=== PATIENT | female | born 1995 | race Caucasian/White ===

== ENCOUNTER 2016-10-13 23:50 | Emergency (ER) | payer OTHER | END 2016-10-14 00:40 | disposition home or self-care (01) | LOC: CFTX 23:50 | DX: L23.9 Allergic contact dermatitis, unspecified cause (principal) | CPT/HCPCS: 99282 ==

== ENCOUNTER 2016-10-15 12:41 | Emergency (ER) | payer OTHER ==
[2016-10-15 12:52] LABS: INFLUENZA A NEG (NEG); INFLUENZA B NEG (NEG)
[2016-10-15 13:06] LABS: URINE SOURCE CLEAN CATCH
[2016-10-15 13:13] LABS: BASOPHIL% 0.3 % (0-2.5); EOSINOPHIL% 0.2 % (0.0-7.0); HEMOGLOBIN 13.8 gm/dL (12.0-16.0); LYMPHOCYTE# 3.3 X10e3 (1.0-3.5); LYMPHOCYTE% 29.4 % (17.0-45.0); MEAN CORPUSCULAR HEMOGLOBIN 26.7 PG (28-34); MEAN CORPUSCULAR HGB CONC 32.1 g/dL (30-36); MEAN PLATELET VOLUME 8.8 FL (6.5-11.5); MONOCYTE% 9.3 % (3.0-12.0); NEUTROPHIL# 6.7 X10e3 (1.5-7.1); NEUTROPHIL% 60.8 % (40-75); PLATELET COUNT 238 X10e3 (140-420); RED BLOOD COUNT 5.18 X10e (3.90-5.30); RED CELL DISTRIBUTION WIDTH 12.8 % (11.0-15.5); WHITE BLOOD COUNT 11.1 X10e3 (4.0-10.5)
[2016-10-15 13:17] LABS: URINE APPEARANCE SL HAZY; URINE COLOR YELLOW; URINE GLUCOSE NORM (NORM); URINE KETONE NEG (NEG); URINE LEUKOCYTE ESTERASE NEG (NEG); URINE NITRATE POS (NEG); URINE PROTEIN 1+ (NEG); URINE SPECIFIC GRAVITY 1.025 (1.003-1.035); URINE UROBILINOGEN NORM (NORM)
[2016-10-15 13:19] LABS: URINE BILIRUBIN NEG (NEG); URINE BLOOD NEG (NEG)
[2016-10-15 13:21] LABS: CULTURE INDICATED? YES; URINE BACTERIA AUWI 1+ (NEGATIVE); URINE YEAST PRESENT
[2016-10-15 13:27] LABS: DIFF IND NO
[2016-10-15 13:41] LABS: BILIRUBIN,TOTAL 0.4 mg/dL (0.2-2.0); BUN/CREATININE RATIO 27.14; CALCIUM SERUM 9.5 mg/dL (8.4-10.2); CREATININE SERUM 0.7 mg/dL (0.6-1.4); GLOM FILT RATE Estimated 123.9 mL/min (>60); POTASSIUM 3.6 mmol/L (3.5-5.1); PROTEIN TOTAL SERUM 7.2 g/dL (6.0-8.3)
== END 2016-10-15 14:18 | disposition home or self-care (01) ==
LOC: CFTX 12:41
PROVIDERS: Nurse Practitioner
DX: N30.00 Acute cystitis without hematuria (principal); F41.9 Anxiety disorder, unspecified; F17.210 Nicotine dependence, cigarettes, uncomplicated; Z88.0 Allergy status to penicillin; Z88.5 Allergy status to narcotic agent; Z88.8 Allergy status to other drugs, medicaments and biological substances
CPT/HCPCS: 80053; 81003; 83690; 84703; 85025; 87086; 87804; 99283

== ENCOUNTER 2016-12-11 12:55 | Emergency (ER) | payer OTHER ==
--- NOTE | ~2016-12-11 | CT2 ---
[facility] A Service of [facility] RADIOLOGY TEXT RESULTS PATIENT: CHRISTIE BORDEN LOCATION: [facility] : 95 UNIT #: [id number] AGE: [address]: Janak Kim MD SEX: F ORDER DR: [id number] [facility] [address] [place], [place] [address] [id number] MR#: [id number] Acc #: [id number] NAME: CHRISTIE BORDEN : 1995 SEX: F STUDY DATE/TIME: 12/11/2016 16:21 UNIT: [facility] ROOM: STUDY DESCRIPTION: CT Abd and Pelv W Cont Attending Physician: Janak Kim M.D. Ordering Physician: Janak Kim M.D. Primary Care Physician: Jeanette Campos A.P.R.N. MEDICAL IMAGING REPORT This report is preliminary unless electronic signature is present EXAM CT of the abdomen and pelvis with contrast INDICATIONS Nausea, vomiting and diarrhea for 3 days. Patient has a history of ventriculoperitoneal shunt. TECHNIQUE Axial CT images were obtained from the dome of the diaphragm through the symphysis pubis following the administration of intravenous contrast material. This CT exam was performed with one or more of the following radiation dose reduction techniques: Automatic exposure control, adjustment of mA and/or kV according to patient size, and iterative reconstruction. FINDINGS Images through the lung bases are clear. Liver appears unremarkable. Stomach and proximal small bowel are within normal limits, as is the spleen. Adrenal glands appear normal, as are the gallbladder and kidneys. Patient does have some mild pancreatic head atrophy, which was also present on a March 2016 examination. No free fluid or adenopathy is seen within the abdomen. Patient's appendix is visualized and is within normal limits. There is no convincing evidence of mechanical bowel obstruction. This patient does have a ventriculoperitoneal shunt. Review of bony windows does not demonstrate any aggressive osseous abnormality. IMPRESSION No definite acute intraabdominal or intrapelvic process is seen to account for the patient's symptomatology. Solid organs are essentially [facility] A Service of [facility] RADIOLOGY TEXT RESULTS PATIENT: CHRISTIE BORDEN LOCATION: [facility] : 95 UNIT #: [id number] AGE: [address]: Janak Kim MD SEX: F ORDER DR: unremarkable and there is no evidence of mechanical bowel obstruction. Patient's appendix is visualized and is within normal limits. Dictated by... Delphine Saucedo M.D. THIS IS AN ELECTRONICALLY VERIFIED REPORT Delphine Saucedo M.D. at 12/13/2016 12:42 PM AFF/psc TD: 12/11/2016 21:53 JOB #: [id number] MEDICAL IMAGING REPORT Page 1 of 1 COPY
[2016-12-11 14:13] LABS: BASOPHIL% 0.5 % (0-2.5); EOSINOPHIL# 0.1 X10e3 (0-0.7); EOSINOPHIL% 1.7 % (0.0-7.0); HEMATOCRIT 45.8 % (35.0-45.0); LYMPHOCYTE# 0.8 X10e3 (1.0-3.5); LYMPHOCYTE% 11.4 % (17.0-45.0); MEAN CELL VOLUME 82.3 FL (83-96); MEAN CORPUSCULAR HEMOGLOBIN 26.9 PG (28-34); MEAN CORPUSCULAR HGB CONC 32.6 g/dL (30-36); MONOCYTE# 0.6 X10e3 (0-1.0); MONOCYTE% 8.3 % (3.0-12.0); NEUTROPHIL# 5.6 X10e3 (1.5-7.1); NEUTROPHIL% 78.1 % (40-75); PLATELET COUNT 243 X10e3 (140-420); RED BLOOD COUNT 5.57 X10e (3.90-5.30); RED CELL DISTRIBUTION WIDTH 12.6 % (11.0-15.5); WHITE BLOOD COUNT 7.2 X10e3 (4.0-10.5)
[2016-12-11 14:18] LABS: DIFF IND NO
[2016-12-11 14:57] LABS: ALBUMIN SERUM 4.2 g/dL (3.5-5.0); BILIRUBIN, DIRECT 0.1 mg/dL (0.0-0.2); BILIRUBIN,TOTAL 1.1 mg/dL (0.2-2.0); BUN/CREATININE RATIO 18.75; CALCIUM SERUM 9.1 mg/dL (8.4-10.2); CREATININE SERUM 0.8 mg/dL (0.6-1.4); GLOM FILT RATE Estimated 105.5 mL/min (>60); POTASSIUM 4.4 mmol/L (3.5-5.1); PROTEIN TOTAL SERUM 7.7 g/dL (6.0-8.3)
[2016-12-11 15:02] LABS: URINE SOURCE CLEAN CATCH
[2016-12-11 15:42] LABS: URINE APPEARANCE CLOUDY; URINE COLOR YELLOW; URINE GLUCOSE 300 MG/DL (NEG); URINE KETONE NEG (NEG); URINE LEUKOCYTE ESTERASE NEG (NEG); URINE NITRATE NEG (NEG); URINE PROTEIN 1+ (NEG); URINE UROBILINOGEN NORM (NEG)
[2016-12-11 15:43] LABS: URINE BILIRUBIN NEG (NEG); URINE BLOOD NEG (NEG)
[2016-12-11 15:45] LABS: CULTURE INDICATED? YES; URBCS1 AUWI 0-2 /[HPF] (0-2); URINE BACTERIA AUWI 4+ (NEGATIVE); URINE SQUAMOUS EPITHELIAL CELL FEW /[HPF]
[2016-12-12] MEDS ORDERED: SERTRALINE HCL100 M1 PO (02:30)
[2016-12-12] MEDS ORDERED: HYDROXYZINE HCL25 M1 PO (02:31)
== END 2016-12-11 17:48 | disposition home or self-care (01) ==
LOC: CED 12:55
PROVIDERS: Emergency Medicine
DX: R10.9 Unspecified abdominal pain (principal); R11.2 Nausea with vomiting, unspecified; F41.9 Anxiety disorder, unspecified; Z88.0 Allergy status to penicillin; Z88.5 Allergy status to narcotic agent; Z88.8 Allergy status to other drugs, medicaments and biological substances
CPT/HCPCS: 36415; 74177; 80048; 80076; 81003; 83690; 84703; 85025; 87086; 96361; 96372; 96374; 99284; J0500; J2405; Q9967

== ENCOUNTER 2016-12-11 22:39 | Observation (INO) | payer OTHER ==
--- NOTE | ~2016-12-11 | DS ---
Unit #: [id number] #: [id number] Patient: CHRISTIE BORDEN [id number] [address] [place], [place] [address] [id number] I MR#: [id number] NAME: CHRISTIE BORDEN ROOM: 459 Age: 21 Sex: F Admission Date: 12/12/2016 : 1995 Discharge Date: 12/13/2016 Attending Physician: Rosario Espinoza M.D. Primary Care Physician: Jeanette Campos A.P.R.N. DISCHARGE SUMMARY REASON FOR ADMISSION Nausea/abdominal pain. HISTORY OF PRESENT ILLNESS/HOSPITAL COURSE The patient is a 21-year-old female with a prior history of hydrocephalus with shunt with numerous prior surgeries who was admitted secondary to generalized abdominal pain. She stated that she had taken some home pain medications including Tylenol and/or Motrin with some relief. Thus, she was admitted for possible underlying colitis and/or gallbladder issues. While she was evaluated in the emergency room, she underwent a CT abdomen and pelvis with contrast which did not show any acute process. Consultation was subsequently placed to Dr. Mcguire of gastroenterology services. The patient underwent upper GI endoscopy as well as sigmoidoscopy with biopsies. Upper GI endoscopy was completely normal up to the third part of the duodenum. For sigmoidoscopy, completely normal examination up to the distal transverse colon. Multiple random biopsies were ascertained. Routine stool studies were ascertained as well including C. diff which was negative. Initial laboratory studies showed a mildly positive urinalysis; however, urine culture was negative. Ultrasound of gallbladder was performed in consideration of possible underlying gallbladder issues. That, too, was negative. Subsequently, a HIDA scan was also ordered which was normal. Ejection fraction was noted to be 41%. At this point in time, extensive workup has been performed and no acute etiology has been found. Therefore, the patient appears clinically stable for discharge from the hospital standpoint. She states she has difficulty following up with a primary care physician secondary to logistical and/or schedule issues. I have asked her to follow up with Dr. Mcguire in approximately two to three weeks post discharge. She will be maintained on her routine home medications including Zoloft as well as Atarax and will add Protonix 40 mg on a daily basis to her regimen. FINAL DISCHARGE DIAGNOSES 1. Generalized abdominal pain, etiology undetermined. 2. Prior history of hydrocephalus with shunt placement. 3. Migraine history. 4. Anxiety. 5. Depression. Unit #: [id number] #: [id number] Patient: CHRISTIE BORDEN DISCHARGE MEDICATIONS 1. Zoloft 100 mg p.o. q. h.s. 2. Atarax 25 mg p.o. q. h.s. 3. Protonix 40 mg p.o. daily. Dictated by... Anuj Lindo M.D. JENNIFER/hailee TD: 12/16/2016 08:11 JOB #: [id number] DISCHARGE SUMMARY Page 1 of 1 X Anuj Lindo MD X DISCHARGE SUMMARY
--- NOTE | ~2016-12-11 | HP ---
Unit #: [id number] #: [id number] Patient: CHRISTIE BORDEN [id number] [address] [address] [id number] MR#: [id number] NAME: CHRISTIE BORDEN ROOM: 459 Age: 21 Sex: F Admission Date: 12/12/2016 : 1995 Attending Physician: Rosario Espinoza M.D. Primary Care Physician: Jeanette Campos A.P.R.N. HISTORY AND PHYSICAL CHIEF COMPLAINT Nausea and abdominal pain. HISTORY OF PRESENT ILLNESS A 21 year old with history of hydrocephalus with shunt admitted because of abdominal pain and nausea. According to her, started 4 days prior to admission. Abdominal pain is generalized, currently 4/10. No aggravating factors. Relieved after pain medicine, associated with nausea and vomiting. Has diarrhea around 4 days, 4 times a day. No blood in stool. No vomiting blood. She felt warm but no fever. She has chills. PAST MEDICAL HISTORY 1. History of hydrocephalus with shunt. She had multiple surgeries for that. 2. History of migraine. 3. History of anxiety. 4. Depression. PAST SURGICAL HISTORY 1. Shunt placement for hydrocephalus. 2. Tonsillectomy. CURRENT HOME MEDICATIONS 1. Sertraline 100 mg at bedtime. 2. Hydroxyzine 25 at bedtime. ALLERGIES Penicillin, morphine, aspirin, fentanyl. SOCIAL HISTORY Smokes 1/4 pack per day. Occasional alcohol. No drugs. FAMILY HISTORY Positive for hypertension. REVIEW OF SYSTEMS No leg swelling. No skin rash. No weakness, numbness, tingling. Reviewed 12-point system with her, which are negative except as in the history of present illness. PHYSICAL EXAMINATION VITAL SIGNS: Temperature is 98.4, pulse 71, respirations 16, blood pressure 97/49. BMI is 48. GENERAL EXAMINATION: A 21 year old, sitting on bed, not in acute Unit #: [id number] #: [id number] Patient: CHRISTIE BORDEN distress, able to provide history, alert, oriented x3. EYES: Pupils equally reactive to light and accommodation. No pallor. No icterus. MOUTH: Dry mucosa present. NECK: Supple. HEART: S1, S2 heard. No murmurs. LUNGS: Clear to auscultation. ABDOMEN: Soft. Bowel sounds are decreased, nontender, obese. EXTREMITIES: No pedal edema. SKIN: No rash. NEUROLOGIC: Nonfocal. DIAGNOSTIC STUDIES IMAGING: CAT scan of the abdomen negative. Ultrasound shows hepatic steatosis. No gallstones. Chest x-ray negative. LAB DATA: Urinalysis shows trace protein, urobilinogen 1, bilirubin positive. Lactic acid 1.2. Sodium 137, potassium 3.4, creatinine 0.8, AST 137, ALT 180, alkaline phosphatase 89, total bilirubin 1.4, albumin 4.1. ASSESSMENT AND PLAN A 21 year old admitted because of abdominal pain, nausea. 1. Abdominal pain with nausea and diarrhea. Etiology unclear. Likely viral gastroenteritis. Admit in observation. 2. Hepatic steatosis with transaminitis with nausea and abdominal pain. I am going ask Dr. Mcguire to see. 3. History of hydrocephalus status post shunt, stable. 4. History of migraines. She did have headache yesterday. Monitor. Currently no headache. 5. Hypokalemia. Replace with potassium. 6. Morbid obesity secondary to calories. Dictated by Arianna Dwyer/shelby TD: 12/12/2016 11:20 JOB #: [id number] HISTORY AND PHYSICAL Page 1 of 1 X Rosario Espinoza MD HISTORY AND PHYSICAL
--- NOTE | ~2016-12-11 | OR ---
Unit #: [id number] #: [id number] Patient: CHRISTIE BORDEN [id number] [address] [place], [place] [address] [id number] I MR#: [id number] NAME: CHRISTIE BORDEN ROOM: 459 Date of Procedure: 12/12/2016 Admission Date: 12/12/2016 Surgeon: Philip Mcguire M.D. : 1995 Attending Physician: Rosario Espinoza M.D. Primary Care Physician: Jeanette Campos A.P.R.N. OPERATIVE REPORT PRIMARY CARE PHYSICIAN Jeanette Campos A.P.R.N. PREOPERATIVE DIAGNOSES The patient has presented with history of epigastric pain radiating to the back as well as nausea and also diarrhea for the past 5 to 7 days. PROCEDURES PERFORMED Upper gastrointestinal endoscopy as well as sigmoidoscopy and biopsies. POSTOPERATIVE DIAGNOSES For upper endoscopy: Completely normal examination up to third part of duodenum. For sigmoidoscopy: Completely normal examination up to distal transverse colon. No mucosal abnormalities whatsoever present. Multiple random biopsies were obtained from throughout the examined area and sent for histology to look for any evidence of microscopic colitis. RECOMMENDATIONS The patient does not have any infectious colitis nor any evidence of ulcer disease. Her ultrasound shows fatty liver, therefore a HIDA scan with CCK it needed and be scheduled for tomorrow. In the meantime, the diarrhea will be treated symptomatically with Colestid. It is noteworthy that her stool studies for infectious organisms are negative. SEDATION USED MAC. DESCRIPTION OF PROCEDURE Following detailed explanation of the potential risks and complications of upper endoscopy and a colonoscopy, namely perforation, bleeding, and complication related to sedation, the patient was brought to GI lab and laid in the left lateral decubitus position. Lubricated tip of the Olympus video upper endoscope was passed through the bite block into the proximal esophagus under direct vision. The entire esophageal mucosa was examined and appeared normal. Z-line was nicely demarcated, there being no esophagitis or hiatus hernia. The scope was then advanced into the gastric cavity and the latter was insufflated. Mucosa of the fundus, body, and antrum was examined and appeared unremarkable. Pylorus was intubated with visualization of the normal duodenal bulb and second and third part of the duodenum. Upon withdrawal and retroflexion, incisura, Unit #: [id number] #: [id number] Patient: LUISLS,CHRISTIE cardia, and greater curve was examined and no additional findings were noted. The scope was then withdrawn in the distal esophagus. The entire esophageal mucosa was examined all the way up to pharynx. No additional findings were noted. The examination table was then turned by 180 degrees and the patient positioned for a sigmoidoscopy. A digital rectal examination was performed, which was normal. Lubricated tip of Olympus video colonoscope was inserted through the anus and advanced under direct vision. The scope was advanced past rectosigmoid into descending colon. No diverticula were noticed in this area. The mucosa throughout here was normal. The scope was then navigated past the splenic flexure and the distal transverse colon. Again, mucosa throughout was normal. Successive segments of the colonic mucosa were examined upon withdrawal and appeared unremarkable. There being no polyps, mass lesions, AVMs, or diverticula. No evidence of colitis noted. The patient did not have any hemorrhoids at anal verge. Multiple random colonic biopsies were obtained from throughout the examined area of the colon and sent for histology to look for any evidence of microscopic colitis. The scope was then withdrawn and the patient returned to the recovery area. She tolerated the procedure without any postprocedure complications. Dictated by... Arianna Spain/devyn TD: 12/13/2016 11:16 JOB #: [id number] CC: Arianna Dwyer A.PRupeshRRupeshNRupesh OPERATIVE REPORT Page 1 of 1 X Philip Mcguire MD X PROCEDURE OPERATIVE NOTE
--- NOTE | ~2016-12-11 | CO ---
Unit #: [id number] #: [id number] Patient: CHRISTIE BORDEN [id number] [address] [address] [id number] I MR#: [id number] NAME: CHRISTIE BORDEN ROOM: 459 Age: 21 Sex: F Admission Date: 12/12/2016 : 1995 Attending Physician: Rosario Espinoza M.D. Primary Care Physician: Jeanette Campos A.P.R.N. Consultation Date: 12/12/2016 CONSULTATION REPORT ATTENDING PHYSICIAN Ryley Mack M.D. REFERRING PHYSICIAN Dr. Espinoza. REASON FOR CONSULTATION Patient has a history of upper abdominal pain along with diarrhea as well as nausea. HISTORY Ms. Borden is a 21-year-old white female who had been to the emergency room on two occasions in the past couple of days. She has had watery, nonbloody diarrhea up to 20 times a day along with upper abdominal pain. Everything is (1) duration. There is no history of any fever, chills, or rigors. Patient denies any history of significant weight loss. Her appetite has generally been poor. PAST MEDICAL HISTORY 1. History of anxiety, depression. 2. Migraine. 3. History of [employer] shunt for hydrocephalus, multiple surgeries for that. PAST SURGICAL HISTORY 1. Tonsillectomy. 2. Shunt placement for hydrocephalus. MEDICATIONS Medications at home included: 1. Hydroxyzine. 2. Sertraline. ALLERGIES She is allergic to penicillin, morphine, aspirin, fentanyl. SOCIAL HISTORY Smokes one quarter of pack per day and occasional alcohol. Occasional alcohol. FAMILY HISTORY Significant for hypertension. REVIEW OF SYSTEMS Detailed review of organ system does not reveal any recent weight loss. Unit #: [id number] #: [id number] Patient: CHRISTIE BORDEN No history of fevers, chills, rigors. No headache, seizures, chest pain, syncope. No history of cough, expectoration, hemoptysis. No history of dysuria, hematuria, pyuria. No history of focal seizures or extremity weakness. The rest of the review of organ systems is unremarkable. PHYSICAL EXAMINATION GENERAL: She is alert and oriented. Appears comfortable. VITAL SIGNS: Stable with a temperature of 98.4, pulse 86 per minute and regular, respiratory rate 16, blood pressure 97/49. She weighs 249 pounds. She is close to her baseline weight. HEENT: She has no pallor, icterus, lymphadenopathy, or peripheral edema. CARDIOVASCULAR: Normal heart sounds. No murmurs. LUNGS: Auscultation of the lungs reveal normal breath sounds. Good air entry. ABDOMEN: Soft, nontender. Liver and spleen are not palpable. Bowel sounds normal. DIAGNOSTIC STUDIES LABORATORY: Lab evaluation shows normal CBC. Serum chemistry shows an elevated transaminases (2) . Bilirubin is normal. IMAGING: The patient had an ultrasound that shows fatty liver. CT scan of the abdomen is pending. CLINICAL IMPRESSION The differential diagnoses here includes: 1. Acute gastroenteritis. 2. Peptic ulcer disease. 3. Biliary stone disease. PLAN The results of the CT scan is awaited. In the meantime, the patient will have an upper endoscopy and a sigmoidoscopy. Will also obtain stool studies for any enteric pathogens. Thank you for asking me to see this pleasant lady. I appreciate the consult. Dictated by... Arianna Spain/dana TD: 12/13/2016 13:53 JOB #: [id number] CC: Arianna Dwyer A.P.RGianfranco Unit #: [id number] #: [id number] Patient: CHRISTIE BORDEN CONSULTATION REPORT Page 1 of 1 X Philip Mcguire MD CONSULTATION REPORT
--- NOTE | ~2016-12-11 | US67 ---
[facility] A Service of [facility] & [facility] RADIOLOGY TEXT RESULTS PATIENT: CHRISTIE BORDEN LOCATION: [place] [address]- : [birth year] UNIT #: [id number] AGE: [address]: Rosario Espinoza MD SEX: F ORDER DR: [id number] [facility] [address] [place], [place] [address] [id number] I MR#: [id number] Acc #: [id number] NAME: CHRISTIE BORDEN : 1995 SEX: F STUDY DATE/TIME: 12/12/2016 7:55 UNIT: [facility] ROOM: [facility] STUDY DESCRIPTION: US Gallbladder Attending Physician: Rosario Espinoza M.D. Ordering Physician: Christa Carmona M.D. Primary Care Physician: Jeanette Campos A.P.R.N. MEDICAL IMAGING REPORT This report is preliminary unless electronic signature is present EXAM Gallbladder ultrasound, 12/12/2016. HISTORY Right upper quadrant abdominal pain for 3 days. Pain radiates over entire abdomen. No known injury. FINDINGS The liver demonstrates an increase in echotexture with attenuation of the ultrasound beam characteristic of fatty infiltration. No cystic or solid mass lesions were seen in the liver. The intra and extrahepatic bile ducts are not dilated. The gallbladder is normal with no evidence of cholelithiasis, wall thickening, or pericholecystic fluid. The common duct measures 6 mm. The pancreas and right kidney are normal. IMPRESSION Fatty infiltration of the liver. Otherwise, negative right upper quadrant ultrasound. Dictated by... Eligio Nolan M.D. THIS IS AN ELECTRONICALLY VERIFIED REPORT Eligio Nolan M.D. at 12/12/2016 4:32 PM ADARSH/rachel TD: 12/12/2016 11:22 JOB #: [id number] MEDICAL IMAGING REPORT Page 1 of 1 COPY
--- NOTE | ~2016-12-11 | EKG ---
PATIENT: CHRISTIE BORDEN UNIT #: [id number] Ventricular Rate: 72 BPM Atrial Rate: 72 BPM P-R Interval: 138 ms QRS Duration: 92 ms Q-T Interval: 412 ms QTC Calculation(Bezet): 451 ms P Mittie: 14 degrees Calculated R Mittie: 58 degrees Calculated T Mittie: 67 degrees Diagnosis Line: Normal sinus rhythm Diagnosis Line: Nonspecific T wave abnormality Diagnosis Line: Abnormal ECG Diagnosis Line: No previous ECGs available Diagnosis Line: Confirmed by TYLER TARIQ MD ([id number]) on Diagnosis Line: 12/13/2016 1:29:17 PM INTERPRETING MD: GAYATHRI
--- NOTE | ~2016-12-11 | BMI ---
[facility] Nutrition Therapy DATE: 12/12/16 Patient: CHRISTIE BORDEN Physician: SHANICE Address: [address] Room/Bed: [address] [place] [address], Zip: [place] [address] Admit Date: 12/12/16 Date of : [birth year] Height: 5 0 Weight: 249 113.3 HIGH BMI NOTE: DX: 21 y/o female admitted with N/V No H&P currently available to review PMH ANTHROPOMETRICS: Ht: 60", Wt: 113.3 kg, BMI: 48 (Stage III obese) DIET: Clear liquid INTERVENTION: Restricted diet, meds/fluids per MD RECOMMENDATIONS: Once medically feasible advance to healthy heart diet as tolerated to promote a gradual weight loss towards a healthy BMI range. Respectfully, Alida Vernon RD, LD [employer] and Nutrition[facility] Services [facility] cc: client file
--- NOTE | ~2016-12-11 | CR72 ---
[facility] A Service of [facility] & [facility] RADIOLOGY TEXT RESULTS PATIENT: CHRISTIE BORDEN LOCATION: [place] [address] : [birth year] UNIT #: [id number] AGE: [address]: Rosario Espinoza MD SEX: F ORDER DR: [id number] [facility] [address] [place], [place] [address] [id number] I MR#: [id number] Acc #: [id number] NAME: CHRISTIE BORDEN : 1995 SEX: F STUDY DATE/TIME: 12/12/2016 0:51 UNIT: [facility] ROOM: [facility] STUDY DESCRIPTION: CR Chest Single View Portable Attending Physician: Rosario Espinoza M.D. Ordering Physician: Christa Carmona M.D. Primary Care Physician: Jeanette Campos A.P.R.N. MEDICAL IMAGING REPORT This report is preliminary unless electronic signature is present EXAM Portable chest INDICATION Chest pain today. PROCEDURE Frontal view chest. COMPARISON None. FINDINGS Heart size within normal limits. Lungs are clear. No pleural fluid. No pneumothorax. IMPRESSION No active process. Dictated by... Luis Angel Koo M.D. THIS IS AN ELECTRONICALLY VERIFIED REPORT Luis Angel Koo M.D. at 12/15/2016 7:19 AM VILLA/andry TD: 12/12/2016 09:25 JOB #: [id number] MEDICAL IMAGING REPORT Page 1 of 1 COPY
--- NOTE | ~2016-12-11 | NM22 ---
[facility] A Service of [facility] RADIOLOGY TEXT RESULTS PATIENT: CHRISTIE BORDEN LOCATION: [facility] : [birth year] UNIT #: [id number] AGE: [address]: Rosario Espinoza MD SEX: F ORDER DR: [id number] [place] [address] [facility] [place] [facility]. [place], [place] [address] [id number] I MR#: [id number] Acc #: [id number] NAME: CHRISTIE BORDEN : 1995 SEX: F STUDY DATE/TIME: 12/13/2016 10:33 UNIT: [facility] ROOM: [facility] STUDY DESCRIPTION: NM Hepatobiliary W GB Pharm Attending Physician: Rosario Espinoza M.D. Ordering Physician: Philip Mcguire M.D. Primary Care Physician: Jeanette Campos A.P.R.N. MEDICAL IMAGING REPORT This report is preliminary unless electronic signature is present EXAM HIDA scan. INDICATION Right upper quadrant abdominal pain for 4 days. TECHNIQUE Patient was administered 6.0 mCi of technetium 99m Choletec and sequential images were obtained through the right upper quadrant. The patient was administered 2.3 mcg of Kinevac and a gallbladder ejection fraction was calculated. FINDINGS Patient has homogeneous radiotracer uptake seen within the liver. Gallbladder is seen on the 15-minute images, and there is also radiotracer identified within the small bowel. Patient is calculated ejection fraction is 41%. IMPRESSION Normal HIDA scan. Dictated by... Delphine Saucedo M.D. THIS IS AN ELECTRONICALLY VERIFIED REPORT Delphine Saucedo M.D. at 12/16/2016 1:24 PM AFF/jt TD: 12/13/2016 20:39 JOB #: [id number] MEDICAL IMAGING REPORT [facility] RADIOLOGY TEXT RESULTS PATIENT: CHRISTIE BORDEN LOCATION: [place] [address] : [birth year] UNIT #: [id number] AGE: [address]: Rosario Espinoza MD SEX: F ORDER DR: Page 1 of 1 COPY
[2016-12-12 01:31] LABS: URINE SOURCE CLEAN CATCH
[2016-12-12 01:39] LABS: POC - CKMB <1.0 ng/mL (0.0-7.9); POC - TROPONIN <0.05 ng/mL (<=0.05)
[2016-12-12 01:46] LABS: BASOPHIL% 0.7 % (0-2.5); EOSINOPHIL# 0.2 X10e3 (0-0.7); EOSINOPHIL% 2.7 % (0.0-7.0); HEMATOCRIT 44.3 % (35.0-45.0); HEMOGLOBIN 14.4 gm/dL (12.0-16.0); LYMPHOCYTE# 1.4 X10e3 (1.0-3.5); LYMPHOCYTE% 23.1 % (17.0-45.0); MEAN CELL VOLUME 82.7 FL (83-96); MEAN CORPUSCULAR HEMOGLOBIN 26.9 PG (28-34); MEAN CORPUSCULAR HGB CONC 32.6 g/dL (30-36); MEAN PLATELET VOLUME 9.2 FL (6.5-11.5); MONOCYTE# 0.8 X10e3 (0-1.0); MONOCYTE% 12.5 % (3.0-12.0); NEUTROPHIL# 3.8 X10e3 (1.5-7.1); PLATELET COUNT 221 X10e3 (140-420); RED BLOOD COUNT 5.36 X10e (3.90-5.30); RED CELL DISTRIBUTION WIDTH 12.9 % (11.0-15.5); WHITE BLOOD COUNT 6.2 X10e3 (4.0-10.5)
[2016-12-12 01:48] LABS: DIFF IND NO
[2016-12-12 01:50] LABS: URINE APPEARANCE TURBID; URINE BLOOD NEG (NEG); URINE COLOR DK YELLOW; URINE GLUCOSE NEG (NEG); URINE KETONE TRACE (NEG); URINE LEUKOCYTE ESTERASE NEG (NEG); URINE NITRATE NEG (NEG); URINE PH 5.5 (5-8); URINE PROTEIN TRACE (NEG); URINE SPECIFIC GRAVITY 1.062 (1.003-1.035)
[2016-12-12 01:56] LABS: ALBUMIN SERUM 4.1 g/dL (3.5-5.0); BILIRUBIN, DIRECT 0.2 mg/dL (0.0-0.2); BILIRUBIN,INDIRECT 1.2 mg/dL (0.0-0.9); BILIRUBIN,TOTAL 1.4 mg/dL (0.2-2.0); BUN/CREATININE RATIO 16.25; CALCIUM SERUM 8.7 mg/dL (8.4-10.2); CREATININE SERUM 0.8 mg/dL (0.6-1.4); GLOM FILT RATE Estimated 105.5 mL/min (>60); POTASSIUM 3.4 mmol/L (3.5-5.1); PROTEIN TOTAL SERUM 7.3 g/dL (6.0-8.3)
[2016-12-12 01:57] LABS: CULTURE INDICATED? NO; URINE BILIRUBIN POS (NEG)
[2016-12-12] MEDS ORDERED: SERTRALINE HCL100 M1 PO (02:30)
[2016-12-12] MEDS ORDERED: HYDROXYZINE HCL25 M1 PO (02:31)
[2016-12-12 03:08] LABS: POC - CKMB <1.0 ng/mL (0.0-7.9); POC - TROPONIN <0.05 ng/mL (<=0.05)
[2016-12-13 03:56] LABS: BASOPHIL% 0.5 % (0-2.5); EOSINOPHIL# 0.1 X10e3 (0-0.7); EOSINOPHIL% 1.3 % (0.0-7.0); HEMATOCRIT 38.5 % (35.0-45.0); HEMOGLOBIN 12.7 gm/dL (12.0-16.0); LYMPHOCYTE# 2.2 X10e3 (1.0-3.5); LYMPHOCYTE% 36.1 % (17.0-45.0); MEAN CELL VOLUME 81.7 FL (83-96); MEAN CORPUSCULAR HEMOGLOBIN 26.9 PG (28-34); MEAN CORPUSCULAR HGB CONC 32.9 g/dL (30-36); MEAN PLATELET VOLUME 8.7 FL (6.5-11.5); MONOCYTE# 0.9 X10e3 (0-1.0); MONOCYTE% 13.9 % (3.0-12.0); NEUTROPHIL% 48.2 % (40-75); PLATELET COUNT 233 X10e3 (140-420); RED BLOOD COUNT 4.71 X10e (3.90-5.30); RED CELL DISTRIBUTION WIDTH 12.8 % (11.0-15.5); WHITE BLOOD COUNT 6.2 X10e3 (4.0-10.5)
[2016-12-13 03:59] LABS: DIFF IND NO
[2016-12-13 04:16] LABS: ALBUMIN SERUM 3.4 g/dL (3.5-5.0); BILIRUBIN,TOTAL 0.9 mg/dL (0.2-2.0); CALCIUM SERUM 8.2 mg/dL (8.4-10.2); CREATININE SERUM 0.7 mg/dL (0.6-1.4); GLOM FILT RATE Estimated 123.9 mL/min (>60); POTASSIUM 3.4 mmol/L (3.5-5.1); PROTEIN TOTAL SERUM 6.2 g/dL (6.0-8.3)
[2016-12-13] MEDS ORDERED: PROTONIX PO (14:18)
[2016-12-13] MEDS ORDERED: LOMOTIL 2.5-0.1 EACH (14:19)
[2016-12-13] MEDS ORDERED: COLESTID PO (14:21)
[2016-12-17 00:57] LABS: HA AB IGM (HEPPAN) Nonreactive (()); HB CORE AB IGM (HEPPAN) Nonreactive (Nonreactive); HB S AG (HEPPAN) Nonreactive (Nonreactive); HEP C AB (HEPPAN) Nonreactive (Nonreactive); HEP C AB SIGNAL TO CUTOFF 0.01 ratio (<1.00)
== END 2016-12-13 17:30 | disposition home or self-care (01) ==
LOC: CED 22:39 → CEDOF 12-12 02:20 → CED 12-12 02:29 → C4B 12-12 02:29 → CEDOF 12-12 05:17 → C4B 12-12 05:17
PROVIDERS: Emergency Medicine; Internal Medicine; Internal Medicine Gastroenterology
DX: R10.84 Generalized abdominal pain (principal); R19.7 Diarrhea, unspecified; K76.0 Fatty (change of) liver, not elsewhere classified; E87.6 Hypokalemia; E66.01 Morbid (severe) obesity due to excess calories; F41.8 Other specified anxiety disorders; Z82.49 Family history of ischemic heart disease and other diseases of the circulatory system; F17.200 Nicotine dependence, unspecified, uncomplicated; Z98.2 Presence of cerebrospinal fluid drainage device; Z88.6 Allergy status to analgesic agent; Z88.0 Allergy status to penicillin; Z88.5 Allergy status to narcotic agent
CPT/HCPCS: 71010; 76705; 78227; 80048; 80053; 80074; 80076; 81003; 82553; 83605; 84484; 84702; 85025; 87493; 88305; 93005; 96361; 96374; 96375; 99285; A9537; C9113; G0378; J1100; J1200; J1885; J2250; J2765; J2805

== ENCOUNTER 2017-01-16 16:10 | Emergency (ER) | payer OTHER ==
[~2017-01-16 16:10] MED LIST: COLESTID PO; HYDROXYZINE HCL25 M1 PO; LOMOTIL 2.5-0.1 EACH; PROTONIX PO; SERTRALINE HCL100 M1 PO
== END 2017-01-16 18:04 | disposition home or self-care (01) ==
LOC: CFTX 16:10 → CED 16:10 → CFTX 17:35
DX: B35.4 Tinea corporis (principal); F17.210 Nicotine dependence, cigarettes, uncomplicated; Z88.0 Allergy status to penicillin; Z88.5 Allergy status to narcotic agent; Z88.6 Allergy status to analgesic agent; Z79.899 Other long term (current) drug therapy
CPT/HCPCS: 99282

== ENCOUNTER 2017-02-04 22:05 | Emergency (ER) | payer OTHER ==
[2017-02-04 23:00] LABS: BASOPHIL# 0.1 X10e3 (0-0.3); EOSINOPHIL# 0.2 X10e3 (0-0.7); EOSINOPHIL% 1.9 % (0.0-7.0); HEMATOCRIT 42.8 % (35.0-45.0); HEMOGLOBIN 14.3 gm/dL (12.0-16.0); LYMPHOCYTE# 3.2 X10e3 (1.0-3.5); LYMPHOCYTE% 35.4 % (17.0-45.0); MEAN CELL VOLUME 81.3 FL (83-96); MEAN CORPUSCULAR HEMOGLOBIN 27.2 PG (28-34); MEAN CORPUSCULAR HGB CONC 33.5 g/dL (30-36); MEAN PLATELET VOLUME 9.1 FL (6.5-11.5); MONOCYTE# 0.7 X10e3 (0-1.0); MONOCYTE% 7.8 % (3.0-12.0); NEUTROPHIL# 4.9 X10e3 (1.5-7.1); NEUTROPHIL% 53.9 % (40-75); PLATELET COUNT 273 X10e3 (140-420); RED BLOOD COUNT 5.27 X10e (3.90-5.30); RED CELL DISTRIBUTION WIDTH 12.7 % (11.0-15.5)
[2017-02-04 23:03] LABS: DIFF IND NO
[2017-02-04 23:10] LABS: URINE SOURCE CLEAN CATCH
[2017-02-04 23:18] LABS: URINE APPEARANCE CLOUDY; URINE BILIRUBIN NEG (NEG); URINE BLOOD NEG (NEG); URINE COLOR YELLOW; URINE GLUCOSE NEG (NEG); URINE KETONE TRACE (NEG); URINE LEUKOCYTE ESTERASE NEG (NEG); URINE NITRATE NEG (NEG); URINE PROTEIN NEG (NEG); URINE SPECIFIC GRAVITY 1.033 (1.003-1.035)
[2017-02-04 23:20] LABS: ALBUMIN SERUM 4.2 g/dL (3.5-5.0); BILIRUBIN,TOTAL 0.2 mg/dL (0.2-2.0); BUN/CREATININE RATIO 21.11; CALCIUM SERUM 9.1 mg/dL (8.4-10.2); CREATININE SERUM 0.9 mg/dL (0.6-1.4); GLOM FILT RATE Estimated 91.5 mL/min (>60); POTASSIUM 3.9 mmol/L (3.5-5.1); PROTEIN TOTAL SERUM 7.4 g/dL (6.0-8.3)
[2017-02-04 23:21] LABS: BILIRUBIN, DIRECT 0.1 mg/dL (0.0-0.2); BILIRUBIN,INDIRECT 0.1 mg/dL (0.0-0.9)
[2017-02-04 23:21] LABS: CULTURE INDICATED? NO
== END 2017-02-05 00:02 | disposition home or self-care (01) ==
LOC: CED 22:05
PROVIDERS: Emergency Medicine
DX: R10.31 Right lower quadrant pain (principal); R10.32 Left lower quadrant pain; R11.0 Nausea; F41.9 Anxiety disorder, unspecified; F32.9 Major depressive disorder, single episode, unspecified; G43.909 Migraine, unspecified, not intractable, without status migrainosus; F17.200 Nicotine dependence, unspecified, uncomplicated; Z98.890 Other specified postprocedural states
CPT/HCPCS: 36415; 80048; 80076; 81003; 82150; 83690; 84703; 85025; 96361; 96374; 96375; 99284; C9113; J0500; J2765

== ENCOUNTER → 2017-02-17 | Outpatient (CLI) | payer OTHER ==
[2017-02-17 10:30] LABS: BASOPHIL% 0.9 % (0-2.5); EOSINOPHIL# 0.2 X10e3 (0-0.7); EOSINOPHIL% 2.9 % (0.0-7.0); HEMATOCRIT 41.5 % (35.0-45.0); HEMOGLOBIN 13.8 gm/dL (12.0-16.0); LYMPHOCYTE% 37.5 % (17.0-45.0); MEAN CELL VOLUME 81.6 FL (83-96); MEAN CORPUSCULAR HEMOGLOBIN 27.3 PG (28-34); MEAN CORPUSCULAR HGB CONC 33.4 g/dL (30-36); MEAN PLATELET VOLUME 8.6 FL (6.5-11.5); MONOCYTE# 0.6 X10e3 (0-1.0); MONOCYTE% 10.8 % (3.0-12.0); NEUTROPHIL# 2.5 X10e3 (1.5-7.1); NEUTROPHIL% 47.9 % (40-75); PLATELET COUNT 241 X10e3 (140-420); RED BLOOD COUNT 5.08 X10e (3.90-5.30); WHITE BLOOD COUNT 5.3 X10e3 (4.0-10.5)
[2017-02-17 10:43] LABS: DIFF IND NO
[2017-02-17 11:38] LABS: ALBUMIN SERUM 4.1 g/dL (3.5-5.0); CALCIUM SERUM 9.3 mg/dL (8.4-10.2); CREATININE SERUM 0.8 mg/dL (0.6-1.4); GLOM FILT RATE Estimated 104.7 mL/min (>60); POTASSIUM 4.8 mmol/L (3.5-5.1); PROTEIN TOTAL SERUM 7.1 g/dL (6.0-8.3)
[2017-02-22 14:41] LABS: ANA SCREEN Negative (Negative); TISSUE TRANSGLUTAMINASE IGA AB 1 U/mL (<4); TISSUE TRANSGLUTAMINASE IGG 1 U/mL (<6)
== END | disposition home or self-care (01) ==
LOC: CLAB 09:58
PROVIDERS: Nurse Practitioner
DX: K52.9 Noninfective gastroenteritis and colitis, unspecified (principal); R79.89 Other specified abnormal findings of blood chemistry
CPT/HCPCS: 36415; 80053; 83516; 85025; 86038; 86039